=== PATIENT | male | born 1955 | race African-American/Black ===

== ENCOUNTER 2022-12-28 09:47 | Outpatient (AMB) | payer MEDICAID, SELFPAY ==
--- NOTE | 2022-12-28 09:48 | MHC.OFFVIS ---
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 Pt is here with his daughter today and daughter states he has been having remembering certain things like remebering where he left something. Accompanied by: Daughter Allergies No Known Allergies Allergy (Verified 12/28/22 09:52) Medication List - Last Reconciled 12/28/22 by Pastora Leiva MD gemfibrozil 600 mg PO BID memantine 10 mg PO BID omeprazole 20 mg PO DAILY HPI HPI Comments History of Present Illness Details 67y/o Icelandic speaking male comes for evaluation of short term memory issues atleast for 3 years now. He is accompanied by his daughter who helps with history. He moved from [place] about 11 years ago. His memory issues are mostly short term , frequently misplaces things, forgets conversations, repeats himself etc.He is independent in all his ADLs.He has no trouble with using phone, stove remote microwave etc. 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 He sleep is Ok His behavior is good No hallucinations he drives good He is very active at home, does oil changes for the cars , gardens extensively, take scare of the cats etc. [facility] Medical History (Updated 12/28/22 @ 10:38 by Pastora Leiva MD) Mild cognitive impairment GERD (gastroesophageal reflux disease) Hiatal hernia Gallstones Eczema Neck pain Fatty liver Hyperlipidemia Cognitive disorder Surgical History History of kidney surgery Social History Household Members: Family Housing: House Alcohol intake: never Patient Tobacco Use Status: Never used Tobacco Review of Systems Const Reports no additional complaints Eyes Reports blurry vision ENT Reports no additional complaints and Reports Normal hearing present Musc Reports back pain Neuro Reports Normal hearing present and Reports memory loss Psych Reports memory loss Physical Exam Vital Signs: Last Vital Signs Pulse 75 12/28/22 09:50 BP 128/82 12/28/22 09:50 Pulse Ox 99 12/28/22 09:50 Oxygen Delivery Method Room Air 12/28/22 09:50 BMI result Body Mass Index 23.4 Const General: cooperative, healthy appearing, comfortable and no acute distress Nutritional Appearance: average body habitus Orientation/consciousness: patient oriented x3 Eyes Pupils: Equal, round and reactive pupils present Neuro General: patient oriented x3, gait normal, tone normal, moves all extremities and no focal motor deficits Cranial nerves: Yes Facial sensation intact/muscles of mastication intact, Yes Equal, round and reactive pupils present, Yes Bilaterally intact EOM present, Yes Nystagmus not present, Yes Normal facial strength present, Yes Midline tongue present, Yes Normal hearing present, Yes Ability to bilaterally rotate head present and Yes Ability to bilaterally elevate shoulders present Gait exam (Neuro): Normal gait present Motor exam (neuro): 5/5 motor strength present throughout and Normal motor muscle tone present throughout Deep tendon reflexes (DTR's): Right triceps reflex intensity grade: 1+, Left triceps reflex intensity grade: 1+, Rt Biceps (C5, C6): 1+, Left biceps reflex intensity grade: 1+, Right brachioradialis reflex intensity grade: 1+, Left brachioradialis reflex intensity grade: 1+, Right patellar reflex intensity grade: 1+ and Left patellar reflex intensity grade: 1+ Coordination: [id number] test normal Orientation What is the (year) (season) (date) (day) (month)?: year, season, date, day and month Where are we (state) (county) (town or city) (hospital) (floor)?: state and hospital/clinic Registration Name of 3 unrelated objects clearly and slowly, then ask patient to repeat all 3 of them. (1st repeat determines score. Make sure they can repeat all three): object 1, object 2 and object 3 Attention & Calculation (CHOOSE ONE) Spell WORLD backwards (DLROW): 3 letters Recall Ask patient to repeat the 3 items from question #3.: object 1 and object 2 Language Show patient a wristwatch & ask what it is. Repeat for pencil.: watch and pencil Ask the patient to 'take a piece of paper with their right hand' 'fold paper in half' 'place paper on floor': take paper in right hand and fold paper in half Print the sentence 'CLOSE YOUR EYES' on a piece. If patient actually closes eyes then score.: followed written direction Ask patient to copy figure of intersecting pentagons exactly. Score if all 10 angles & 2 intersects are included.: all 10 angles present & 2 are intersected Score Score: 21 Assessment & Plan Assessment & Plan (1) Mild cognitive impairment: Comment: ? early dementia MMSE was limited due to language and cultural issues Code(s): G31.84 - Mild cognitive impairment of uncertain or unknown etiology Plan Continue memantine 10mg bid I will trial him on donepezil 5 mg qd for [address] brain, TSH Vit B 12 CBC CMP for evaluation Orders: Orders TSH reflex Free T4 Today F09 - Unspecified mental disorder due to known physiological condition Complete Blood Count Auto Diff Today F09 - Unspecified mental disorder due to known physiological condition Erythrocyte Sedimentation Rate Today F09 - Unspecified mental disorder due to known physiological condition CT head/brain wo IV con Today F09 - Unspecified mental disorder due to known physiological condition Vitamin B12 and Folate Today F09 - Unspecified mental disorder due to known physiological condition Vitamin D 25-OH (D2 and D3) Today F09 - Unspecified mental disorder due to known physiological condition Comprehensive Met. Panel Today F09 - Unspecified mental disorder due to known physiological condition Medications: New donepezil (Aricept) 1/2 tab qd for 4 weeks then 1 tab qd orally daily; 30 tabs 6RF Coding Level of Care Code New Pt Level 4 (51828) Diagnoses Mild cognitive impairment G31.84
[2022-12-28 09:50] VITALS: BP 128/82; PULSE 75; O2SAT 99; BMI 23.4
== END 2022-12-28 10:17 | disposition home or self-care (01) ==
PROVIDERS: Visit Provider Psychiatry & Neurology Neurology
DX: G31.84 Mild cognitive impairment of uncertain or unknown etiology (principal)
CPT/HCPCS: 99204

== ENCOUNTER → 2022-12-28 09:47 | Outpatient (BNVA) | payer MEDICAID, SELFPAY | PROVIDERS: Visit Provider Psychiatry & Neurology Neurology ==

== ENCOUNTER 2023-02-03 15:16 | Outpatient (REF) | payer MEDICAID, SELFPAY ==
--- NOTE | ~2023-02-03 | CT_ITS ---
EXAMINATION: CT head/brain wo IV con CLINICAL INFORMATION: Reason for Exam F09 - Unspecified mental disorder due to known physiological condition COMPARISON: None. TECHNIQUE: Contiguous axial imaging was performed from the skull base to vertex without intravenous contrast. Sagittal and coronal reformatted images were obtained. This CT examination was performed using dose optimization techniques as appropriate, variously including the following: * Automated exposure control * Adjustment of mA and/or kV according to patient size (this includes techniques or standardized protocols for targeted exams where dose is matched to indication/reason for exam; i.e. extremities or head) Use of iterative reconstruction technique DLP: 622.54 mGy-cm FINDINGS: There is an ill-defined mass in the right frontal lobe measuring up to 3.0 x 1.8 cm in maximal axial dimensions with central hyperdense components which may reflect intralesional hemorrhage. There is also suggestion of small subarachnoid blood products along the right frontal convexity. Fairly extensive vasogenic edema involving the right frontal white matter extending across the anterior body of the corpus callosum with locoregional mass effect including sulcal effacement and deformation of the right frontal horn. There is approximately 5 mm leftward midline shift. No downward herniation. No evidence of hydrocephalus. No acute soft tissue or osseous abnormality. CT/CT head/brain wo IV con IMPRESSION: Right frontal lobe mass measuring up to 3.0 cm with central hyperdense components which may reflect intralesional hemorrhage. There is also suggestion of small subarachnoid blood products along the right frontal convexity. There is locoregional mass effect as well as approximately 5 mm leftward midline shift. Recommend further evaluation with contrast-enhanced MRI of the brain. Above impression was communicated to Dr Leiva on 02/08/2023 at 4:50 PM
== END 2023-02-03 15:17 | disposition home or self-care (01) ==
LOC: HO.CT 15:16
PROVIDERS: PCP Nurse Practitioner Family; Visit Provider Psychiatry & Neurology Neurology
DX: F09 Unspecified mental disorder due to known physiological condition (principal)
CPT/HCPCS: 70450

== ENCOUNTER 2023-05-03 08:52 | Outpatient (AMB) | payer MEDICAID, SELFPAY ==
--- NOTE | 2023-05-03 09:11 | MHC.OFFVIS ---
Intake Vital Signs 05/03/23 09:15 Height 5 ft 6 in Weight 146 lb 4 oz BMI 23.6 BP 120/72 Blood Pressure Location Lt brachial Position Sitting Pulse 72 Pulse Source Pulse Oximeter Pulse Oximetry (%) 100 Oxygen Delivery Method Room Air Intake Visit Reasons: 4 mnts f/u with Anna Hernandez MD for Memory-lvm Intake Note: Patient presents for 4 month f/u Allergies No Known Allergies Allergy (Verified 05/03/23 09:14) HPI HPI Comments History of Present Illness Details 67 y/o Georgian speaking male comes for follow up of memory loss. Pt is accompanied by his daughter who helps with history. Pt is on memantine 10 mg BID and donepezil 10 mg daily. Denies side effects. He thinks that he remember things more. Brain MRI report result was subacute parenchymal hemorrhage in the right frontal lobe with surrounding vasogenic edema. This appears similar in size to the study of 02/03/23. Peripheral rim of enhancement may reflect granulation tissue in the setting of organizing hematoma, but it is difficult to exclude underlying neoplasm. Pt referred to neurosurgion and had a repeat brain MRI done 3 days ago. He is independent in all his ADLs.He has no trouble with using phone, stove remote microwave etc. He used to work in a Bakery as a roy. He sleep is Ok, denies behavior problem. No hallucinations, he drives. He is very active at home, does oil changes for the cars, gardens extensively, take scare of the cats etc. [facility] Medical History (Updated 02/09/23 @ 09:41 by Pastora Leiva MD) Mild cognitive impairment GERD (gastroesophageal reflux disease) Hiatal hernia Gallstones Eczema Neck pain Fatty liver Hyperlipidemia Cognitive disorder Surgical History History of kidney surgery Social History Household Members: Family Housing: House Alcohol intake: never Patient Tobacco Use Status: Never used Tobacco Review of Systems Const All systems reviewed & are unremarkable except as noted in HPI and below ENT Reports Normal hearing present Neuro Reports Normal hearing present Physical Exam Vital Signs: Last Vital Signs Pulse 72 05/03/23 09:15 BP 120/72 05/03/23 09:15 Pulse Ox 100 05/03/23 09:15 Oxygen Delivery Method Room Air 05/03/23 09:15 BMI result Body Mass Index 23.6 Const General: cooperative, healthy appearing, comfortable and no acute distress Nutritional Appearance: average body habitus Orientation/consciousness: patient oriented x3 Eyes Pupils: Equal, round and reactive pupils present Neuro General: patient oriented x3, gait normal, tone normal, moves all extremities and no focal motor deficits Cranial nerves: Yes Facial sensation intact/muscles of mastication intact, Yes Equal, round and reactive pupils present, Yes Bilaterally intact EOM present, Yes Nystagmus not present, Yes Normal facial strength present, Yes Midline tongue present, Yes Normal hearing present, Yes Ability to bilaterally rotate head present and Yes Ability to bilaterally elevate shoulders present Gait exam (Neuro): Normal gait present Motor exam (neuro): 5/5 motor strength present throughout and Normal motor muscle tone present throughout Deep tendon reflexes (DTR's): Right triceps reflex intensity grade: 1+, Left triceps reflex intensity grade: 1+, Rt Biceps (C5, C6): 1+, Left biceps reflex intensity grade: 1+, Right brachioradialis reflex intensity grade: 1+, Left brachioradialis reflex intensity grade: 1+, Right patellar reflex intensity grade: 1+ and Left patellar reflex intensity grade: 1+ Coordination: [id number] test normal Assessment & Plan Assessment & Plan (1) Mild cognitive impairment: Comment: ? early dementia MMSE was limited due to language and cultural issues Code(s): G31.84 - Mild cognitive impairment of uncertain or unknown etiology Plan Continue memantine 10mg bid and donepezil 10 mg daily. Request the repeat brain MRI result from [facility]. Continue to follow up with neurosurgeon. Continue to do daily physical and cognitive activities. Coding Level of Care Code Est Pt Level 3 (38535) Diagnoses Mild cognitive impairment G31.84
[2023-05-03 09:15] VITALS: BP 120/72; PULSE 72; O2SAT 100; BMI 23.6
== END 2023-05-03 09:31 | disposition home or self-care (01) ==
PROVIDERS: PCP Nurse Practitioner Family; Visit Provider Nurse Practitioner Family
DX: G31.84 Mild cognitive impairment of uncertain or unknown etiology (principal)
CPT/HCPCS: 99213

== ENCOUNTER → 2023-05-03 08:52 | Outpatient (BNVA) | payer MEDICAID, SELFPAY | PROVIDERS: PCP Nurse Practitioner Family; Visit Provider Nurse Practitioner Family | DX: G31.84 Mild cognitive impairment of uncertain or unknown etiology (principal); Z79.899 Other long term (current) drug therapy | CPT/HCPCS: 99212 ==

== ENCOUNTER 2023-12-23 14:58 | Outpatient (AMB) | payer MEDICAID, SELFPAY ==
[2023-12-23 15:02] VITALS: BP 110/60; PULSE 75; O2SAT 99; BMI 23.8
--- NOTE | 2023-12-23 15:02 | A.OFFVIS_ITS ---
Vital Signs 12/23/23 15:02 Height 5 ft 6 in Weight 147 lb 4 oz BMI 23.8 BP 110/60 Blood Pressure Location Rt brachial Position Sitting Pulse 75 Pulse Source Pulse Oximeter Pulse Oximetry (%) 99 Oxygen Delivery Method Room Air Intake Visit Reasons: 4 mnts f/u Memory, Right Frontal Lobe hematoma, Seizures, generalized convulsive Intake Note: Patient presents for a 7 mo f/u- Mild cognitive impairment Federal Aid Coordinator Required: Yes Federal Aid Coordinator Services: Federal Aid Coordinator Offered & Declined (Federal Aid Coordinator services refused, refusal form signed and scanned into chart.) Federal Aid Coordinator Name: Jerel (son) Accompanied by: Son Allergies No Known Allergies Allergy (Verified 12/23/23 15:04) Medication List - Last Reconciled 12/23/23 by Pastora Leiva MD atorvastatin 20 mg PO DAILY cholecalciferol (vitamin D3) 25 mcg PO DAILY 30 days levetiracetam 500 mg PO BID memantine 10 mg PO BID metformin 500 mg PO DAILY mirtazapine 15 mg PO BEDTIME omeprazole 20 mg PO DAILY HPI Comments Details: 68 y/o Latvian speaking male comes for follow up of memory loss. 2 months ago he had a seizure and was hospitalized at [facility] He drove home in [place] after a family get together in [place]. No alcohol.During the get togetehr when he was trying to reverse his car from the driveway and had some difficulty so his son helped him . while driving as per his , he seemed confused , changed lanes and did not stay in [place]. But he was able to get home and he seemed confused -did not go inside the house initially , seemed confused. when he went inside the bathroom he was found unresponsive. He was confused for 2 days . He was in [facility] ER - very confused for 2 days . He fell on his face when he passed out . He bit his tongue , hit his chin etc. He had MRI and has follow up with neurology. He was started on Keppra 500mg bid . He does drive now. Pt is accompanied by his son who helps with history. Pt is on memantine 10 mg BID. Denies side effects. He thinks that he remember things more. History form his last visit-Brain MRI report result was subacute parenchymal hemorrhage in the right frontal lobe with surrounding vasogenic edema. This appears similar in size to the study of 11/8/23. Peripheral rim of enhancement may reflect granulation tissue in the setting of organizing hematoma, but it is difficult to exclude underlying neoplasm. Pt referred to neurosurgeon and had a repeat brain MRI done 3 days ago. He is independent in all his ADLs.He has no trouble with using phone, stove remote microwave etc. He used to work in a Bakery as a roy. He sleep is Ok, denies behavior problem. No hallucinations, he drives. He is very active at home, does oil changes for the cars, gardens extensively, take scare of the cats etc. [facility] Medical History (Updated 12/23/23 @ 15:36 by Pastora Leiva MD) Seizure Mild cognitive impairment GERD (gastroesophageal reflux disease) Hiatal hernia Gallstones Eczema Neck pain Fatty liver Hyperlipidemia Cognitive disorder Surgical History History of kidney surgery Social History Household Members: Family Housing: House Alcohol intake: never Patient Tobacco Use Status: Never used Tobacco Review of Systems ENT Reports Normal hearing present Neuro Reports Normal hearing present Physical Exam Vital Signs: Last Vital Signs Pulse 75 12/23/23 15:02 BP 110/60 12/23/23 15:02 Pulse Ox 99 12/23/23 15:02 Oxygen Delivery Method Room Air 12/23/23 15:02 BMI result Body Mass Index 23.8 Const General: cooperative, healthy appearing, comfortable and no acute distress Nutritional Appearance: average body habitus Orientation/consciousness: patient oriented x3 Eyes Pupils: Equal, round and reactive pupils present Neuro General: patient oriented x3, gait normal, tone normal, moves all extremities and no focal motor deficits Cranial nerves: Yes Facial sensation intact/muscles of mastication intact, Yes Equal, round and reactive pupils present, Yes Bilaterally intact EOM present, Yes Nystagmus not present, Yes Normal facial strength present, Yes Midline tongue present, Yes Normal hearing present, Yes Ability to bilaterally rotate head present and Yes Ability to bilaterally elevate shoulders present Gait exam (Neuro): Normal gait present Motor exam (neuro): 5/5 motor strength present throughout and Normal motor muscle tone present throughout Coordination: [id number] test normal Assessment & Plan Assessment & Plan (1) Generalized convulsive seizure: Code(s): R56.9 - Unspecified convulsions (2) Seizure: Comment: new onset - relate dto increasing right frontal lobe mass? hematoma Code(s): R56.9 - Unspecified convulsions Category: Medical (3) Mild cognitive impairment: Comment: ? early dementia MMSE was limited due to language and cultural issues Code(s): G31.84 - Mild cognitive impairment of uncertain or unknown etiology Category: Medical (4) Right frontal lobe mass: Code(s): G93.89 - Other specified disorders of brain Category: Medical Plan Continue levetiracetam 500mg bid He has F/U with [facility] Neurology and Neurosurgery ( Dr. Pan) reviewed notes from ED_ he had a witnessed Grand mal seizure with prolonge dpost ictal state MRI showed increasing irregularity of right frontal lobe mass, EEG and Video EEG showed slowing in the right. NO DRIVING Continue memantine 10mg bid Continue to do daily physical and cognitive activities. Coding Level of Care Code Est Pt Level 4 (41067) Complex EM visit Add On G2211 Diagnoses Generalized convulsive seizure R56.9 Seizure R56.9 Mild cognitive impairment G31.84 Right frontal lobe mass G93.89
== END 2023-12-23 15:37 | disposition home or self-care (01) ==
PROVIDERS: Absent Provider Psychiatry & Neurology Neurology; PCP Nurse Practitioner Family; Visit Provider Psychiatry & Neurology Neurology
DX: R56.9 Unspecified convulsions (principal); G31.84 Mild cognitive impairment of uncertain or unknown etiology; G93.89 Other specified disorders of brain
CPT/HCPCS: 99214

== ENCOUNTER → 2023-12-23 14:58 | Outpatient (BNVA) | payer MEDICAID, SELFPAY | PROVIDERS: Absent Provider Psychiatry & Neurology Neurology; PCP Nurse Practitioner Family; Visit Provider Psychiatry & Neurology Neurology | DX: R56.9 Unspecified convulsions (principal); G31.84 Mild cognitive impairment of uncertain or unknown etiology; G93.89 Other specified disorders of brain | CPT/HCPCS: 99212 ==

== ENCOUNTER 2024-07-31 15:24 | Outpatient (AMB) | payer MEDICAID, SELFPAY ==
[2024-07-31 15:30] VITALS: BP 120/76; PULSE 76; O2SAT 97; BMI 25.2
--- NOTE | 2024-07-31 15:30 | MHC.OFFVIS ---
Vital Signs 07/31/24 15:30 Height 5 ft 6 in Weight 156 lb BMI 25.2 BP 120/76 Blood Pressure Location Lt brachial Position Sitting Pulse 76 Pulse Source Pulse Oximeter Pulse Oximetry (%) 97 Oxygen Delivery Method Room Air Intake Visit Reasons: 6 mnts f/u Memory-Conf w/son Software Sales Representative Required: Yes Software Sales Representative Services: Software Sales Representative Present Software Sales Representative Name: River Arceo, [id number] Accompanied by: Son Allergies No Known Allergies Allergy (Verified 07/31/24 15:36) Medication List - Last Reconciled 07/31/24 by SEMAJ Caldwell atorvastatin 20 mg PO DAILY cholecalciferol (vitamin D3) 25 mcg PO DAILY 30 days levetiracetam 500 mg PO BID memantine 10 mg PO BID metformin 500 mg PO DAILY mirtazapine 15 mg PO BEDTIME omeprazole 20 mg PO DAILY HPI Comments Details: 68 y/o Green[place]ic speaking male comes for follow up of memory loss and seizure. Patient is accompanied by his son. 12/24/2023, brain MRI with and without contrast, at [facility]: IMPRESSION: 1. Expected evolution of hemorrhagic cavity in the right frontal lobe. There has been decrease in conspicuity of amorphous peripheral enhancement, with no progressive/nodular enhancement or nodularity to suggest underlying lesion. 2. Moderate volume loss and mild small vessel disease of the white matter. Since last visit, patient has not had follow-up with Neurosurgery Patient has had follow-up with [facility] neurology regarding follow-up of witnessed seizure October of 2023. Patient was advised to continue levetiracetam 500 mg twice a day. However, patient is unsure if he is taking memantine or levetiracetam. Son state patient manages his own medications, and comes to son when he needs to cone picker a refill. Patient's son states he really only helps patient with interpretation. He denies any interval seizure activity. He states he has resumed driving. He denies any near accidents. His son does ask if he should be driving. He states the other providers have told him he can drive. He states his memory is stable. He is Ind w/ ADLs. He states he does not cook- states he is never really cooked. 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 He states he is sleeping well. 12/23/2023, previous HPI by Dr. Leiva 2 months ago he had a seizure and was hospitalized at [facility] He drove home in [place] after a family get together in [place]. No alcohol.During the get togetehr when he was trying to reverse his car from the driveway and had some difficulty so his son helped him . while driving as per his , he seemed confused , changed lanes and did not stay in luis. But he was able to get home and he seemed confused -did not go inside the house initially , seemed confused. when he went inside the bathroom he was found unresponsive. He was confused for 2 days . He was in [facility] ER - very confused for 2 days . He fell on his face when he passed out . He bit his tongue , hit his chin etc. He had MRI and has follow up with neurology. He was started on Keppra 500mg bid . He does drive now. Pt is accompanied by his son who helps with history. Pt is on memantine 10 mg BID. Denies side effects. He thinks that he remember things more. History form his last visit- Brain MRI report result was subacute parenchymal hemorrhage in the right frontal lobe with surrounding vasogenic edema. This appears similar in size to the study of 02/03/23. Peripheral rim of enhancement may reflect granulation tissue in the setting of organizing hematoma, but it is difficult to exclude underlying neoplasm. Pt referred to neurosurgeon and had a repeat brain MRI done 3 days ago. He is independent in all his ADLs.He has no trouble with using phone, stove remote microwave etc. He used to work in a Bakery as a roy. He sleep is Ok, denies behavior problem. No hallucinations, he drives. He is very active at home, does oil changes for the cars, gardens extensively, take scare of the cats etc. [facility] Medical History (Updated 12/23/23 @ 15:36 by Pastora Leiva MD) Seizure Mild cognitive impairment GERD (gastroesophageal reflux disease) Hiatal hernia Gallstones Eczema Neck pain Fatty liver Hyperlipidemia Cognitive disorder Surgical History History of kidney surgery Social History Household Members: Family Housing: House Alcohol intake: never Patient Tobacco Use Status: Never used Tobacco Physical Exam Vital Signs: Last Vital Signs Pulse 76 05/05/25 15:30 BP 120/76 07/31/24 15:30 Pulse Ox 97 07/31/24 15:30 Oxygen Delivery Method Room Air 07/31/24 15:30 BMI result Body Mass Index 25.2 Const General: cooperative, healthy appearing, comfortable and no acute distress Nutritional Appearance: average body habitus Orientation/consciousness: patient oriented x3 Neuro Other: Mild short-term memory lapses General: patient oriented x3, gait normal, moves all extremities and no focal motor deficits Cranial nerves: Yes CN's II-XII intact bilaterally Gait exam (Neuro): Normal gait present Motor exam (neuro): 5/5 motor strength present throughout Assessment & Plan Assessment & Plan (1) Generalized convulsive seizure: Code(s): R56.9 - Unspecified convulsions (2) Seizure: Comment: new onset - relate dto increasing right frontal lobe mass? hematoma Code(s): R56.9 - Unspecified convulsions Category: Medical (3) Mild cognitive impairment: Comment: ? early dementia MMSE was limited due to language and cultural issues Code(s): G31.84 - Mild cognitive impairment of uncertain or unknown etiology Category: Medical (4) Right frontal lobe mass: Code(s): G93.89 - Other specified disorders of brain Category: Medical Plan For history of witnessed Grand mal seizure with prolonged post ictal state in setting of right frontal lobe mass: 10/2024: EEG and Video EEG showed slowing in the right. 12/20 brain mri w/wo- Expected evolution of hemorrhagic cavity in the right frontal lobe. Decrease in conspicuity of amorphous peripheral enhancement. Moderate volume loss and mild small vessel disease of the white matter. Continue levetiracetam 500mg bid Patient unsure if he has follow-up with [facility] Neurology. We will request follow-up appointment with Neurosurgery ( Dr. Pan). Consider follow-up MRI brain if neurosurgery request this prior to follow-up appointment. Reviewed [place] laws regarding driving- no driving for six-month after known seizure activity, or written 3 months of changes in AED tx. As patient can not confirm that he is consistently taking levetiracetam, patient is advised to not drive. For cognition: We will provide patient a copy of his medication list. Asked son to confirm if patient is taking his medications regularly, however son states he really only provides interpreting services for his father. We will confirm with pharmacy. Otherwise, could consider home nursing referral. Continue memantine 10mg bid Continue to engage in regular physical, social, cognitive activities. Pt to follow-up in 6 months or sooner prn. Medications: Changed From memantine 10 mg PO BID To memantine 10 mg PO BID 90 days 180 tabs 3RF Coding Level of Care Code Est Pt Level 4 (52906) Diagnoses Generalized convulsive seizure R56.9 Seizure R56.9 Mild cognitive impairment G31.84 Right frontal lobe mass G93.89
--- OUTSIDE RECORDS SUMMARY | 2024-07-31 17:00 | XMS_ITS | Clinical Summary ---
Author Organization [facility] Address [address] [place] [address] Care Team Providers Care Talent Acquisition Project Manager Name Role Phone Renetta Molina [facility] Primary Care Provider [phone] Source Comments PLEASE NOTE, if this patient is a minor, it may be UNLAWFUL to discuss sensitive information that is contained in these records (such as FAMILY PLANNING, MENTAL HEALTH or SUBSTANCE ABUSE) with the minor patient's parent or other person without the patient's specific authorization.[facility] Allergies No known active allergies Medications selenium sulfide 2.5 % lotionIndications: Tinea versicolor Apply topically once as needed (to whole body from neck down at white spots in body) for up to 1 dose 118 mL 2 08/16/19 22 Active polyethylene glycol, PEG, 3350 (GLYCOLAX) 17 gram/dose powderIndications: Slow transit constipation Take 17 g by mouth once daily For constipation 510 g 2 10/22/19 24 Active memantine (NAMENDA) 10 mg tablet Take 1 Tablet by mouth 2 (two) times daily For his memory 180 Tablet 2 10/22/19 24 Active levETIRAcetam (KEPPRA) 500 mg tabletIndications: Epilepsy, tonic-clonic (HCC-CMS) Take 1 Tablet by mouth 2 (two) times daily For seizures 180 Tablet 1 12/03/19 24 Active MISCELLANEOUS MEDICAL SUPPLY MISCIndications:Ep ilepsy, tonic-clonic (HCC-CMS),Generali zed muscle weakness,Unsteady gait Order cane. Use daily. Need lifetime. 1 Each 1 12/03/19 24 Active metFORMIN XR (GLUCOPHAGE-XR) 500 mg 24 hr tabletIndications: Diabetes mellitus type 2 ([facility]) Take 2 Tablets by mouth once daily with dinner 180 Tablet 2 03/24/20 24 Active atorvastatin (LIPITOR) 20 mg tabletIndications: Mixed hyperlipidemia Take 1 Tablet by mouth nightly at bedtime For cholesterol 90 Tablet 1 03/24/20 24 Active mirtazapine (REMERON) 15 mg tabletIndications: Decreased appetite TAKE ONE TABLET BY MOUTH AT BEDTIME TO HELP INCREASE APPETITE 90 Tablet 1 05/02/19 25 Active omeprazole (PRILOSEC) [address] capsuleIndications :Gastroesophageal reflux disease without esophagitis TAKE ONE CAPSULE BY MOUTH EVERY MORNING BEFORE BREAKFAST 90 Capsule 06/29/19 25 Active acetaminophen (TYLENOL) 500 mg tablet Take 1 Tablet by mouth every 6 (six) hours as needed for pain 60 Tablet 1 07/26/19 25 Active ibuprofen 600 mg tablet Take 1 Tablet by mouth 4 (four) times daily as needed for pain 20 Tablet 07/26/19 25 Active ibuprofen 600 mg tabletIndications: Chronic apical periodontitis Take 1 Tablet by mouth 4 (four) times daily as needed for pain 20 Tablet 08/15/19 22 025 Discontin ued(Reord er (E-Cancel Not Sent)) acetaminophen (TYLENOL) 500 mg tabletIndications: Tooth pain Take 1 Tablet by mouth every 6 (six) hours as needed for pain 60 Tablet 1 10/22/19 24 025 Discontin ued(Reord er (E-Cancel Not Sent)) Active Problems Problem Noted Date Diagnosed Date Epilepsy, tonic-clonic ([facility]) 03/24/2024 Overview (03/24/2024): 02/10/2024: saw neuro at [facility]; per note; Assessment/Plan Assessment: This is a 68 y.o. male with medical history of seizure, intraparenchymal hemorrhage of brain, type 2 diabetes, aspiration pneumonia, HLD, and GERD who was referred to neurology for seizure. Ness and his son deny any seizures or seizure-like activity since being home. He is tolerating the levetiracetam, though with some waning fatigue. Would continue on the levetiracetam at this time. Could certainly perform an EEG in the future to see if he might be a candidate to come off seizure medications, though concern for arm jerking during sleep over the past 1-2 years should be considered. We discussed seizure safety precautions and importance of medication compliance and sleep. Plan: Tonic-clonic seizure in setting of right frontal intraparenchymal hemorrhage --Continue levetiracetam 500 mg BID - refills sent to pharmacy --No driving for 6 months post seizure per [place] state law Follow-up: 4-5 months Tinea versicolor 07/25/2021 Constipation 07/25/2021 Hx of fall 07/25/2021 Toe pain, right, 2nd toe 07/25/2021 Eczema 02/10/2019 Calculus of gallbladder with out cholecystitis without obstruction 01/15/2019 Overview (01/15/2019): 11/28/2018: Court: CT of abd: IMPRESSION: Mild pancolitis. Cholelithiasis. Small hiatal hernia. Fatty infiltration of the liver Pancolitis (HCC-CMS) 01/15/2019 Overview (06/18/2019): 02/17/2019: On OV with GI surgeon: 1. Pancolitis I told the patient that his presentation was not consistent with symptomatic cholelithiasis but rather a potential issue with his colon and recommended he undergo colonoscopy. He indicated he understood this line of reasoning. He said he believed he had a colonoscopy in the remote past but doesn't know the results of follow up. After his colonoscopy, if he desires cholecystectomy then I believe this would not be unreasonable. We will refer to GI for consideration of endoscopic evaluation of his colon . Fatty liver 01/15/2019 Hernia, hiatal, small 01/15/2019 Memory change 06/10/2015 Overview (07/14/2017): Saw neurology: 06/07/2015 at - Barbeau score- 20/30: impression: mild cognitive impairment based on MOCA evaluation- patient was encouraged to bring family member to the next to obtain ocllateral history. Based on MOCA testing will obtain further evaluation including MRI brain, vitamin B12 and thyroid studies. Plan RTC in about 2 months. RESULT: MRI Brain W/O Contrast [facility] VISIT NUMBER :[id number] Patient Name : Ness Leonard Date of : 1955 Date of Exam : 06/12/2015 Referring Physician : PORFIRIO EDWARD [address] [place] [address] Exam : MR - BRAIN (C-) CPT 03555 - Room Description : [facility] Espr 2 1.5 Technique : Sag T1, Ax T2, Ax T2 Flair, Ax DWI, Ax SWI Final Report Indication: Dementia. Comparison: None. Findings: The ventricles, sulci, and subarachnoid spaces are mildly prominent globally suggesting volume loss . No areas of focal atrophy are demonstrated. Prominent left basal ganglia perivascular space noted. There is no evidence of infarct or intracranial hemorrhage. No mass lesion, mass effect, or shift of the midline structures. No extra-axial collection. There are scattered punctate foci of nonspecific hyperintense T2/FLAIR signal in the subcortical and periventricular white matter. The midline structures are normal. The cerebellar tonsils terminate above the foramen magnum. The major intracranial vascular flow voids are present. Orbits, paranasal sinuses, and mastoids are unremarkable. Impression: No acute intracranial abnormality. Mild generalized volume loss. Mild nonspecific white matter signal changes most likely represent chronic small vessel disease at this age ----- PHYSICIAN : PAIGE SNYDER MD (Signature on file) 06/13/2015 Reason For Exam dementia;dementia Signature Line Dictated By: Not on Staff VINI MD Dictated Date/Time: 06/13/15 10:24 a Reviewed By: Not on Staff VINI MD Signed By: Not on Staff , VINI PICKETT Signed Date/Time: 06/13/15 10:24 am Transcribed By: TS Transcribed Date/Time: 06/13/15 10:24 am Palpitation 06/03/2015 Overview (07/14/2017): Evaluated by [facility] cardiology on 04/24/[address] Gayle: Impression: It is unclear if it represents arrhythmia or are stress related. Plan: Heart monitor for 48 hours. Will follow up after with him. Pt has dyslipidemia: Monitor and diet at this time. Holter Monitor 48 Hours Hookup Date 06/14/2015 Hookup Time [id number] Acquisition Duration 47.59 Hours SUMMARY [id number] # OF QRS COMPLEXES 0 # OF VENTRICULAR ECTOPICS 15 # OF SUPRAVENTRICULAR ECTOPICS VENTRICULAR 0 # OF VENTRICULAR ISOLATED BEATS 0 # OF VENTRICULAR BIGEMINAL CYCLES 0 # OF VENTRICULAR COUPLETS 0 # OF VENTRICULAR RUNS 0 # OF VENTRICULAR BEATS IN RUNS SUPRAVENTRICULAR 12 # OF SUPRAVENTRICULAR ISOLATED BEATS 0 # OF SUPRAVENTRICULAR COUPLETS 1 # OF SUPRAVENTRICULAR RUNS 3 # OF SUPRAVENTRICULAR BEATS IN RUNS 3 # OF LONGEST SUPRAVENTRICULAR BEATS 144 LONGEST SUPRAVENTRICULAR RATE BPM 3 # OF FASTEST SUPRAVENTRICULAR BEATS 144 FASTEST SUPRAVENTRICULAR RATE BPM HEART RATE 84 Avg. Heart Rate BPM 141 Max. Heart Rate BPM 64 Min. Heart Rate BPM LONGEST R TO R LONGEST RR 1.072 SEC 06/16/2015 07:23:33 AM LONGEST RR DATE/TIME INTERPRETATION Comments: Predominant rhythm is normal sinus rhythm. The average heart rate is 84 beats per minute with normal heart rate variability. The minimum heart rate is 64 beats per minute, normal sinus rhythm. The maximum heart rate is 141 beats per minute, sinus tachycardia. Rare supraventricular ectopy. No ventricular ectopy. No high degree AV block No sinus pauses Symptom correlation could not be performed since patient did not provide diary entries. No cause for palpitation identified on this recording. Confirmed by SARAHI PICKETT, ROXANNE ([id number]) on 06/27/2015 8:25:38 AM Neck pain on right side 03/26/2015 Overview (06/03/2015): Chronic Saw Pain management at - recommended TENS units. Follow up prn and start PT. Hyperlipidemia 01/04/2015 Gastroesophageal reflux disease without esophagi tis 10/19/2014 Overview (06/18/2019): 04/25/2019: GI [facility] OV: 1. Acid reflux: Appears to be asymptomatic taking some form of medication.2. Constipation/left-sided abdominal pain: Patient advised to increase the amount of natural fiber in his diet, consume 6 glasses of water daily, start stool softener taking up to 2 to 3 pills daily and start MiraLAX 3 times a week if his symptoms do not improve. Assume for now his left-sided abdominal pain is constipation related. Follow-up in 6 months. He can call the office with any worsening or new symptoms. Immune to hepatitis B 10/19/2014 Overview (10/19/2014): By blood test 2012 H/O colonoscopy 12/26/2013 Overview (02/26/2015): Colonoscopy done 02/14/2015 . Normal colon. Rpt in 10 years Mike peterss 09/06/2013 Left Ureteral stone. Removed in past 03/07/2013 Resolved Problems Problem Noted Date Diagnosed Date Resolved Date Dementia without behavioral disturbance ([facility]) 02/10/2019 05/28/2023 Overview (07/21/2020): 02/10/2019:Failed MMSE y: could not go over then 6 questions. already failed on first 6 questions.. Abscess 09/11/2014 01/04/2015 Allergic reaction 05/09/2013 01/04/2015 Encounters Date Type Department Care Team Description 07/25/2024 10:20 AM EDT Office Visit [address] [phone] Berenice Coronado FNP Gastroesophageal reflux disease without esophagitis (Primary Dx); Diabetes mellitus type 2 ([facility]); Epilepsy, tonic-clonic ([facility]); Moderate mixed hyperlipidemia not requiring statin therapy from Last 3 Months Immunizations Immunization Administration Dates Next Due Flu, Adjuvant, 65y+ (Fluad) 03/03/2020 Flu, High Dose, 65y+, Fluzon e High Dose 03/23/2022 Flu, Preservative Free 03/03/2020,2018,01/17/2018,11/25 INFLUENZA, SEASONAL, INJECTABLE 01/04/2015,03/07 Influenza (FLUZONE), high-do se, trivalent, PF 12/03/2023 MMR (MMR II/Priorix) 04/10/2013,03/07/2013 Moderna COVID-19 Vaccine, re d cap blue label, 12+ Primary Series 03/25/2021,07/08/2020,07/02/2020 PNEUMOCOCCAL CONJUGATE PCV 13 08/05/2022 PNEUMOCOCCAL POLYSACCHARIDE PPV23 (Pneumovax 23) 11/01/2020 Pfizer COVID-19 (Comirnaty), Mrna, Lnp-s, Pf, Jim-sucrose, 30 Mcg/0.3 Ml, 12yr+ 03/24/2024 TDAP 05/28/2023,03/07/2013 Td (adult), 5 Lf tetanus tox oid, preservative free 04/10/2013 Typhoid (Typhim Vi), Vicps 03/24/2021 ZOSTER VACCINE, RECOMBINANT (SHINGRIX) ,02/10/2019 Zoster, Live Vaccine (Zostavax) 11/25/2016 Family History Relation Name Status Comments Brother Alive Father Mother Alive Sister Alive Social History Tobacco Use Types Packs/Day Years Used Date Smoking Tobacco: Former Cigarettes Smokeless Tobacco: Never Tobacco Cessation:Counseling Given: Not Answered Comments:Used to smoke when he was child. Stopped at age 17 y/o. Alcohol Use Standard Drinks/Week Comments No 0 (1 standard drink = 0.6 oz pur e alcohol) Social Connections Answer Date Recorded Connectedness 0 11/03/2022 Financial Resource Strain Answer Date R ecorded Financial Resource Strain 0 2022 Stress Answer Date Recorded Stress 0 11/03/2022 Physical Activity Answer Date Recorded Physical Activity 0 11/19/2018 Food Insecurity Answer Date Recorded Food 0 11/03/2022 Transportation Needs Answer Date Record ed Transportation 0 11/03/2022 Housing Stability Answer Date Recorded Housing 0 11/03/2022 Safety and Environment Answer Date [facility] r[facility] Safety 0 11/03/2022 Utilities Answer Date Recorded Utilities 0 11/03/2022 Employment Answer Date Recorded Stress 0 07/03/2021 Sex and Gender Information Value Date Recorded Sex Assigned at Male 01/12/2017 9:28 AM PDT Legal Sex Male 11:34 AM PDT Gender Identity Male 01/12/2017 9:28 AM PDT Sexual Orientation Straight 01/12/2017 9: 28 AM PDT 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 Not on file Not on file Not on file Last Filed Vital Signs Vital Sign Reading Time Taken Comments Blood Pressure 122/70 07/25/2024 10:45 AM EDT Pulse 79 07/25/2024 10:45 AM EDT Temperature 37.1 ??C (98.7 ??F) 07/25/2024 10:45 AM E DT Respiratory Rate 16 07/25/2024 10:45 AM EDT Oxygen Saturation 99% 07/25/2024 10:45 AM EDT Inhaled Oxygen Concentration - - Weight 69.1 kg (152 lb 4.8 oz) 07/25/2024 10:45 AM EDT Height 165.1 cm (5' 5 ) 07/25/2024 10:45 AM EDT Body Mass Index 25.34 07/25/2024 10:45 AM EDT Plan of Treatment Health Maintenance Due Date Last Done Comments Dental Examination 1955 Diabetes Foot Exam 1955 Urine Albumin Creatinine Rat io Screening 1955 CT Colonography 08/27/2000 Fecal DNA 08/27/2000 Flexible Sigmoidoscopy 08/27/2000 FIT/gFOBT 12/07/2014 12/07/2013 Abdominal Aortic Aneurysm Screening 08/27/2020 Annual Preventive Care Visit 11/04/202310/2022, 04/19/2020, 05/05/2018, Additional history exists Medicare Annual Wellness Visit 11/04/2023 0 11/03/2022, 04/19/2020, 05/05/2018, Additional history exists Alcohol and Drug Screen 03/29/2024 05/28/19 24, 08/05/2022, 07/03/2021, Additional history exists Depression Annual Screen 03/29/2024 05/28/2023 [id number] ( season) 2024 03/24/2024, 03/23/2022, 03/25/2021, Additional history exists Diabetes HbA1c 09/23/2024 07/25/2024, 02/27, 10/22/2023, Additional history exists Falls Prevention 10/21/2024 10/22/2023, 12/2022, 10/16/2020 Colonoscopy 02/14/2025 02/14/2015 Colorectal Cancer Screening 02/14/2025 Retinopathy Screening 07/11/2025 07/11/2024 Hypertension Screening (#1) 07/25/2025 Lipid Screening 07/25/2025 07/25/2024, 09/27, 05/28/2023, Additional history exists Serum Creatinine 07/25/2025 07/25/2024, 03/2023, 11/09/2022, Additional history exists Tobacco Screening 07/25/2025 07/25/2024 Imm-DTaP/Tdap/Td (4 - Td or Tdap) 05/27/2033 05/28/2023, 04/10/2013, 03/07/2013 Hepatitis C Screening Completed 03/26/2015 Imm-Zoster, Recombinant Completed 04/19/19 21, 02/10/2019, 11/25/2016 Imm-Pneumococcal 65+ Completed 08/05/2022, 11/02/19 Imm-Influenza Completed 12/03/2023, 02/27, 03/03/2020, Additional history exists Procedures Procedure Name Priority Date/Time Associated Diagnosis Comments HGA1C W/EAG Routine 07/25/2024 11:29 AM EDT Diabetes mellitus type 2 ([facility]) LIPIDS W RFLX TO DIRECT LDL Routine 07/25/2024 11:29 AM EDT Moderate mixed hyperlipidemia not requiring statin therapy COMPREHENSIVE METABOLIC PANEL Routine 07/25/2024 11:29 AM EDT Diabetes mellitus type 2 ([facility]) BLOOD COUNT COMPLETE AUTO&AUTO DIFRNTL WBC Routine 07/25/2024 11:29 AM EDT Diabetes mellitus type 2 ([facility]) EYE EXAM 07/11/2024 3:00 AM EDT HEALTH HISTORY SCANNED DOCUMENT 06/26/2024 3:00 AM EDT HEPATITIS A,B,C PANEL Routine 03/26/2015 12:00 PM EST Palpitations Other hyperlipidemia Memory problem from Last 3 Months or Most Recently Relevant to Health Maintenance Results * (ABNORMAL) HGA1C W/EAG (07/25/2024 11:29 AM EDT) HEMOGLOBIN A1C 6.4(H) <5.7 % [facility] Comment: For someone without known diabetes, a hemoglobin A1c value between 5.7% and 6.4% is consistent with prediabetes and should be confirmed with a follow-up test. For someone with known diabetes, a value <7% indicates that their diabetes is well controlled. A1c targets should be individualized based on duration of diabetes, age, comorbid conditions, and other considerations. This assay result is consistent with an increased risk of diabetes. Currently, no consensus exists regarding use of hemoglobin A1c for diagnosis of diabetes for children. EAG (MG/DL) 137 mg/dL [facility] EAG (MMOL/L) 7.6 mmol/L [facility] Blood Blood / Unknown 07/25/2024 1 1:29 AM EDT 07/25/2024 11:29 AM EDT Narrative [facility] - 07/26/2024 9:22 PM EDT FASTING:YES Berenice CHA LAB - BLOOD DRAW Fin al Result [facility] [address] [place] [address], [employer] [address] [address] * (ABNORMAL) LIPIDS W RFLX TO DIRECT LDL (07/25/2024 11:29 AM EDT) [facility] Signature CHOLESTEROL, TOTAL 121 <200 mg/dL [facility] HDL CHOLESTEROL 37(L) > OR = 40 mg/dL [facility] TRIGLYCERIDES 248(H) <150 mg/dL [facility] Comment: If a non-fasting specimen was collected, consider repeat triglyceride testing on a fasting specimen if clinically indicated. Aakash et al. J. of Clin. Lipidol. 2015;9:129-169. LDL-CHOLESTEROL 55 99 mg/dL (calc) [facility] Comment: Reference range: <100 Desirable range <100 mg/dL for primary prevention; ?? <70 mg/dL for patients with CHD or diabetic patients with > or = 2 CHD risk factors. LDL-C is now calculated using the Radha calculation, which is a validated novel method providing better accuracy than the Friedewald equation in the estimation of LDL-C. Art THOMAS et al. RAS. 2013;310(19): 3965-6825 (http://education.IQMax.Fidelithon Systems/faq/GHZ811) CHOL/HDLC RATIO 3.3 <5.0 (calc) [facility] NON-HDL CHOLESTEROL 84 <130 mg/dL (calc) [facility] Comment: For patients with diabetes plus 1 major ASCVD risk factor, treating to a non-HDL-C goal of <100 mg/dL (LDL-C of <70 mg/dL) is considered a therapeutic option. Blood Blood / Unknown 07/25/2024 1 1:29 AM EDT 07/25/2024 11:29 AM EDT Narrative [facility] - 07/26/2024 9:22 PM EDT FASTING:YES us Berenice CHA LAB - BLOOD DRAW Fin al Result [facility] [address] [address], [facility] [address] [address] * BLOOD COUNT COMPLETE AUTO&AUTO DIFRNTL WBC (07/25/2024 11:29 AM EDT) Pathologist [facility] WHITE BLOOD CELL COUNT 5.6 3.8 - 10.8 Thousand/ uL [facility] RED BLOOD CELL COUNT 4.78 4.20 - 5.80 Million/u L [facility] HEMOGLOBIN 14.0 13.2 - 17.1 g/dL [facility] HEMATOCRIT 42.6 38.5 - 50.0 % [facility] MCV 89.1 80.0 - 100.0 fL [facility] MCH 29.3 27.0 - 33.0 pg [facility] MCHC 32.9 32.0 - 36.0 g/dL [facility] Comment: For adults, a slight decrease in the calculated MCHC value (in the range of 30 to 32 g/dL) is most likely not clinically significant; however, it should be interpreted with caution in correlation with other red cell parameters and the patient's clinical condition. RDW 12.9 11.0 - 15.0 % [facility] PLATELET COUNT 257 140 - 400 Thousand/ uL [facility] MPV 11.1 7.5 - 12.5 fL [facility] ABSOLUTE NEUTROPHILS 2,884 1,500 - 7,800 cells/uL [facility] ABSOLUTE LYMPHOCYTES 1,898 850 - 3,900 cells/uL [facility] ABSOLUTE MONOCYTES 577 200 - 950 cells/uL [facility] ABSOLUTE EOSINOPHILS 213 15 - 500 cells/uL [facility] [employer] ABSOLUTE BASOPHILS 28 0 - 200 cells/uL [facility] NEUTROPHILS PCT 51.5 % [facility] LYMPHOCYTES 33.9 % [facility] DI AG[employer]S [employer] [facility] MONOCYTES 10.3 % [facility] [employer] [facility] EOSINOPHILS 3.8 % [facility] AGNA[employer]space[facility] [employer] [facility] BASOPHILS 0.5 % [facility] [employer] [facility] Blood Blood / Unknown 07/25/2024 1 1:29 AM EDT 07/25/2024 11:29 AM EDT Narrative [facility] - 07/26/2024 9:22 PM EDT FASTING:YES Berenice ZARAGOZAP LAB - BLOOD DRAW Simon tera Result - Final [facility] [address] [place] [id number], [facility] [address] [place] [phone] * (ABNORMAL) COMPREHENSIVE METABOLIC PANEL (07/25/2024 11:29 AM EDT) Pathologist [facility] GLUCOSE 108(H) 65 - 99 mg/dL [facility] Comment: ?Fasting reference interval For someone without known diabetes, a glucose value between 100 and 125 mg/dL is consistent with prediabetes and should be confirmed with a follow-up test. UREA NITROGEN (BUN) 16 7 - 25 mg/dL [facility] CREATININE (blood) 0.84 0.70 - 1.35 mg/dL [facility] EGFR 95 > OR = 60 mL/min/1. 73m2 [facility] BUN/CREATININE RATIO SEE NOTE: [facility] Comment: ?? Not Reported: BUN and Creatinine are within ?? reference range. ? SODIUM 140 135 - 146 mmol/L [facility] POTASSIUM 4.2 3.5 - 5.3 mmol/L [facility] CHLORIDE 104 98 - 110 mmol/L [facility] CARBON DIOXIDE 24 20 - 32 mmol/L [facility] CALCIUM 9.2 8.6 - 10.3 mg/dL [facility] PROTEIN, TOTAL 7.3 6.1 - 8.1 g/dL [facility] ALBUMIN 4.4 3.6 - 5.1 g/dL [facility] GLOBULIN 2.9 1.9 - 3.7 g/dL (calc) [facility] ALBUMIN/GLOBULI N RATIO 1.5 1.0 - 2.5 (calc) [facility] BILIRUBIN, TOTAL 0.4 0.2 - 1.2 mg/dL [facility] ALKALINE PHOSPHATASE 132 35 - 144 U/L [facility] AST 14 10 - 35 U/L [facility] ALT 11 9 - 46 U/L [facility] Blood Blood / Unknown 07/25/2024 1 1:29 AM EDT 07/25/2024 11:29 AM EDT Narrative [facility] - 07/26/2024 9:22 PM EDT FASTING:YES Berenice CHA LAB - BLOOD DRAW Simon tera Result - Final [facility] [address] [address], [facility] [address] [address] * EYE EXAM (07/11/2024 3:00 AM EDT) 07/11/2024 3:00 AM EDT Renetta ZARAGOZAP OTHER Final Result * HEALTH HISTORY SCANNED DOCUMENT (06/26/2024 3:00 AM EDT) 06/26/2024 3:00 AM EDT Renetta Molina [facility] SCAN OTHER ORDERS Final Result * (ABNORMAL) HEPATITIS A,B,C PANEL (03/26/2015 12:00 PM EST) HEPATITIS B SURFACE ANTIBODY POSITIVE(A) NEGATIVE [facility] HEPATITIS B SURFACE ANTIGEN NEGATIVE NEGATIVE [facility] HEPATITIS C VIRUS DIAGNOSTIC NEGATIVE NEGATIVE [facility] HEPATITIS A ANTIBODY TOTAL POSITIVE(A) NEGATIVE [facility] HEPATITIS B CORE ANTIBODY POSITIVE(A) NEGATIVE [facility] Blood specimen (specimen) Blood / Unknown 03/26/2015 12:00 PM EST 03/26/2015 1:40 PM EST Narrative [facility] - 03/26/2015 10:49 PM EST [facility] [address] [place] [address] PT ID [id number] ORD# [id number] us Alondra Nava PA-C LAB - BLOOD DRAW Edited Res ult - Final [facility] [address] [place] [address], from Last 3 Months or Most Recently Relevant to Health Maintenance Insurance [facility] DENTAL HEALTH SAFETY NET DENTAL MEDICARE - [place] Advance Directives Healthcare Agents on File Name Relationship Healthcare Agent Relationshi p Communication Mudather Nick Gentile Health Care Agent Care Teams Talent Acquisition Project Manager Relationship Specialty Start Date End Date Renetta Molina FNP [facility] [place] [address] PCP - General 10/10/18
== END 2024-08-01 08:02 | disposition home or self-care (01) ==
LOC: HO.HSMS 15:24
PROVIDERS: Absent Provider Nurse Practitioner Family; PCP Nurse Practitioner Family; Visit Provider Psychiatry & Neurology Neurology
DX: R56.9 Unspecified convulsions (principal); G31.84 Mild cognitive impairment of uncertain or unknown etiology; G93.89 Other specified disorders of brain
CPT/HCPCS: 99214

== ENCOUNTER → 2024-07-31 15:24 | Outpatient (BNVA) | payer MEDICAID, SELFPAY | PROVIDERS: Absent Provider Nurse Practitioner Family; PCP Nurse Practitioner Family; Visit Provider Psychiatry & Neurology Neurology | DX: G31.84 Mild cognitive impairment of uncertain or unknown etiology (principal); G90.89 Other disorders of autonomic nervous system; R56.9 Unspecified convulsions | CPT/HCPCS: 99212 ==